=== PATIENT | male | born 1970 | race American Indian/Alaskan Native ===

== ENCOUNTER 2016-12-09 17:33 | Emergency (ER) | payer OTHER ==
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
[2016-12-09] MEDS ORDERED: TDAP Vaccine 0.5 mL Syr IM ONE (17:50)
[2016-12-09 18:14] VITALS: BP 120/75; PULSE 78; TEMP 98.1; O2SAT 98; BMI 25.8
[2016-12-09 19:25] VITALS: RESP 17
--- NOTE | 2016-12-10 11:14 | RAD ---
PROCEDURE: Right Knee Radiographs. HISTORY: pain s/p fall COMPARISON: None. FINDINGS: BONES: Normal. No fracture. JOINTS: Normal. No osteoarthritis. JOINT EFFUSION: None. OTHER FINDINGS: None. IMPRESSION: Normal radiographs of the right knee.
--- NOTE | 2016-12-10 11:15 | RAD ---
PROCEDURE: Right Knee Radiographs. HISTORY: pain COMPARISON: None. FINDINGS: BONES: Normal. No fracture. JOINTS: Normal. No osteoarthritis. JOINT EFFUSION: None. OTHER FINDINGS: The patellar view is unremarkable IMPRESSION: Normal radiographs of the right knee.
== END 2016-12-09 19:26 | disposition home or self-care (01) ==
LOC: ED 17:33
DX: S80.211A Abrasion, right knee, initial encounter (principal); V13.4XXA Pedal cycle driver injured in collision with car, pick-up truck or van in traffic accident, initial encounter; Y93.55 Activity, bike riding; Y92.410 Unspecified street and highway as the place of occurrence of the external cause; M25.561 Pain in right knee; Z23 Encounter for immunization